=== PATIENT | male | born 1965 | race Caucasian/White ===

== ENCOUNTER → 2024-11-01 12:27 | Outpatient (REF) | payer OTHER, SELFPAY | LOC: RCS 12:27 | PROVIDERS: ATTENDING PHYSICIAN Internal Medicine Cardiovascular Disease | DX: E78.2 Mixed hyperlipidemia (principal); Z82.49 Family history of ischemic heart disease and other diseases of the circulatory system; R06.09 Other forms of dyspnea | CPT/HCPCS: 93017 ==